=== PATIENT | male | born 1935 | race Caucasian/White ===

== ENCOUNTER → 2020-02-18 | Outpatient (CLI) | payer OTHER ==
[~2020-02-18] VITALS: Ht 182.9 cm; Wt 71.2 kg
[~2020-02-18] MED LIST: AVELOX 400 MG400 MG; BAYER CHEWABLE81 MG PO; BIAXIN 500 MG500 M2 PO; COZAAR 50 MG TA50 M2 PO; CRESTOR20 MG PO; DOXYCYCLINE 10100 MG PO; OMEPRAZOLE 20 M20 M1 PO
--- NOTE | ~2020-02-18 | P ---
[facility] [place] [address] [place] [address] PROCEDURE REPORT Name: YRIS DUARTE Room #: REG DOMITILA CamarenaHardeepJuan DiegoHardeep#: [id number] Admission: 02/18/20 Attend Phys: Sylvester Bustillo MD Discharge: Date of : 39 Report #: [id number] THIS REPORT FOR: cc: Vini Geronimo MD, Bernard O. MD Morgan,Sylvester Barrera MD ~ CC: Vini Bustillo DATE OF SERVICE: 02/18/2020 PROCEDURE: Lumbar epidural steroid injection at L4-L5. MEDICATIONS: 0.5% lidocaine and 80 mg of triamcinolone. PROCEDURE NOTE: After both written and informed consent to include risk of spinal cord damage, increased pain, weakness and dural puncture, the patient was taken to the fluoroscopy suite, placed in the prone position. After sterile prep and drape, a skin wheal with lidocaine was raised. A 22-gauge epidural Tuohy needle was inserted in the midline at left paramedian with good loss to resistance. Negative aspiration for cerebrospinal fluid or blood was noted. Then 1 mL of Omnipaque under biplanar fluoroscopy showed good spread within the epidural space. This was followed with 80 mg of triamcinolone plus ____ was then injected to flush the needle; it was removed. The patient was monitored for an appropriate period of time and discharged in good and stable condition. No complications and was taken to Recovery Room. By: [id number] Sylvester Bustillo MD /brandy
--- NOTE | ~2020-02-18 | HPC ---
[facility] [place] [address] PAIN MANAGEMENT CONSULTATION Name: YRIS DUARTE Room #: REG DOMITILA DubonHardeep#: [id number] Admission: 02/18/20 Attend Phys: Sylvester Bustillo MD Discharge: Date of : 39 Report #: [id number] CC: Vini Bustillo DATE OF SERVICE: 02/18/2020 CHIEF COMPLAINT: Low back pain with some radiation through the left hip all the way to the foot with numbness and tingling. I saw the patient 5 years ago. At that time, ____ very active 80-year-old, younger than his age. He returns today as an 85-year-old who acts much younger than his age! He was working on his farm, driving a tractor, lifting heavy logs, and exacerbated radicular like pain into his left leg. He describes that as periodic, aching sensation, scores it anywhere between a 4 and a 6 at its worst and it follows in the L4-L5 distribution down to the foot. He has some numbness. This is the same place that he had symptoms previously. Pain is gradually improving, but is still bothersome and affecting his day-to-day activities. Dr. Vini Geronimo has asked him to see me for an epidural injection. An MRI was performed a year ago when he had similar symptoms. I have reviewed that study and it shows evidence of age-related degenerative changes, which would be consistent with his pain. He has a degenerative disk at L4-L5 as well as at L5-S1, although this is moderate. There is severe canal stenosis at L4-L5, which is a combination of ligamentum flavum hypertrophy and facet changes. There are moderate changes at L5-S1 of a similar nature. MEDICATIONS: ____, omeprazole, ____, losartan and baby aspirin. ALLERGIES: None. PAST MEDICAL HISTORY: He has a history of chronic kidney disease stage 3, hyperlipidemia, and coronary artery disease. He has had no significant symptoms, however, no angina, no heart attacks. He was described as prediabetic in 2016, but has had no diabetes and no longer carries that diagnosis. Prostate cancer identified in 2013, treated by radiation. He had some radiation colitis in 2016. This is also improved. PSA has remained low. He follows with Dr. Geronimo for that diagnosis. 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 He has 4 children and 9 grandchildren. Denies use of tobacco, drinks alcohol socially without drinking in excess 2-3 times a week. REVIEW OF SYSTEMS: Negative other than some occasional aches and pains. PQRS: Continuation shows that he is at low risk for addiction. He is on no opioid medications, is treated for hypertension and is not on a blood thinner. Prescription drug monitoring program information is negative. PHYSICAL EXAMINATION: GENERAL: A very fit 85-year-old, slender and lean. Moves independently from sitting to standing position. His gait is mildly antalgic. Slightly bent over when he walks, but can easily move into an upright position and does not complain of pain in his back or his legs when he does so. He is 6 feet tall with a BMI of 21.3. VITAL SIGNS: Blood pressure 129/71, heart rate 73, respirations 14, O2 sat 100. NECK: Supple. CHEST: Clear. CARDIAC: Rhythm is regular. ABDOMEN: Scaphoid and soft. No palpable masses. Bowel sounds are present. MUSCULOSKELETAL: Reveals tenderness across the lumbosacral segment, but it is only mild. Straight leg raising is performed in the sitting and supine position with only mild tenderness and stretching. Deep tendon reflexes are 2+ in knees and ankles and symmetrical. He has a little bit of pain with external rotation of the left hip, but otherwise not too bad. IMPRESSION: Lumbar radiculopathy following a L4, L5, and S1 distribution. This is likely related to severe stenosis at L4-L5. RECOMMENDATION: Epidural steroid injection may provide him with symptomatic relief. I will keep him off of all medications. I have again recommended that he stay off of nonsteroidal anti-inflammatory drugs because of his reported kidney disease. Potential risks and benefits were reviewed in detail, and he would like to proceed. By: [id number] Sylvester Bustillo MD /nt
[2020-02-18 10:07] VITALS: BP 129/71
--- NOTE | 2020-02-18 10:27 | NUR ---
Pain Clinic Assessment: 1. History of Osteoarthritis: SPINE History of Rheumatoid Arthritis: Not Applicable 2. Height: 6 ft. 0 in. 182.9 cm. Weight: 157.0 lb. oz. 71.215 kg. Patient's BMI: 21.3 3. Vital Signs: BP: 129/71 Pulse: 73 Resp: 14 Temp: 02 Sat: 100 ECG Mon: 4. Pain Intensity: 2 5. Fall Risk: Dizziness: Y Needs help standing or walking: N Fallen in the last 3 months: N Fall risk comments: 6. Patient on Blood Thinner: None 7. History of Hypertension: Y 8. Opioid Therapy greater than 6 weeks: N Opiate Contract Signed: 9. Risk Assessment Tool Provided: LOW 10. Functional Assessment Tool: 49/ 11. Recreational Drug Use: Never Drug Type: Tobacco Use: Former Smoker Tobacco Type: Cigarettes Amount or Packs/day: 1 How Many Years: 20 Alcohol Use: Yes Frequency: Weekly Quant: 1-2
== END | disposition home or self-care (01) ==
LOC: PAIN 11-03 10:08
PROVIDERS: ATTEND Anesthesiology Pain Medicine
DX: M54.16 Radiculopathy, lumbar region (principal); G89.29 Other chronic pain; I12.9 Hypertensive chronic kidney disease with stage 1 through stage 4 chronic kidney disease, or unspecified chronic kidney disease; N18.30 Chronic kidney disease, stage 3 unspecified; I25.10 Atherosclerotic heart disease of native coronary artery without angina pectoris; E78.5 Hyperlipidemia, unspecified; Z85.46 Personal history of malignant neoplasm of prostate; Z98.890 Other specified postprocedural states; Z79.899 Other long term (current) drug therapy

== ENCOUNTER → 2020-08-18 | Outpatient (CLI) | payer OTHER ==
[~2020-08-18] VITALS: Ht 182.9 cm; Wt 76.9 kg
[~2020-08-18] MED LIST changes: +MELOXICAM7.5 MG PO
[2020-08-18 10:29] VITALS: BP 126/65
--- NOTE | 2020-08-18 11:11 | NUR ---
Pain Clinic Assessment: 1. History of Osteoarthritis: SPINE left hip joint History of Rheumatoid Arthritis: Not Applicable 2. Height: 6 ft. 0 in. 182.9 cm. Weight: 169.6 lb. oz. 76.930 kg. Patient's BMI: 23.0 3. Vital Signs: BP: 126/65 Pulse: 81 Resp: 14 Temp: 02 Sat: 97 ECG Mon: 4. Pain Intensity: 7-8 with prolonged walk 5. Fall Risk: Dizziness: N Needs help standing or walking: Y Fallen in the last 3 months: N Fall risk comments: 6. Patient on Blood Thinner: None 7. History of Hypertension: Y 8. Opioid Therapy greater than 6 weeks: N Opiate Contract Signed: 9. Risk Assessment Tool Provided: LOW-0 10. Functional Assessment Tool: 49/70 11. Recreational Drug Use: Never Drug Type: Tobacco Use: Former Smoker Tobacco Type: Amount or Packs/day: How Many Years: Alcohol Use: Yes Frequency: Weekly Quant: 1-2
== END | disposition home or self-care (01) ==
LOC: PAIN 06:57
PROVIDERS: ATTEND Anesthesiology Pain Medicine
DX: M54.16 Radiculopathy, lumbar region (principal); G89.29 Other chronic pain; I12.9 Hypertensive chronic kidney disease with stage 1 through stage 4 chronic kidney disease, or unspecified chronic kidney disease; N18.30 Chronic kidney disease, stage 3 unspecified; E78.5 Hyperlipidemia, unspecified; Z85.46 Personal history of malignant neoplasm of prostate; Z98.890 Other specified postprocedural states; Z79.899 Other long term (current) drug therapy